=== PATIENT | male | born 1935 | race Caucasian/White ===

== ENCOUNTER 2018-12-20 11:31 | Emergency (ER) | payer MEDICARE ==
[~2018-12-20] VITALS: Ht 180.3 cm; Wt 68.0 kg
[~2018-12-20 11:31] MED LIST: AMOXICILLIN500 MG ORAL; OFLOXACIN10 ML RIGHT EAR
[2018-12-20] MEDS ORDERED: CASODEX50 MG ORAL (11:35)
[2018-12-20] MEDS ORDERED: MILK OF MA400 MG/51 ORAL (11:35)
[2018-12-20] MEDS ORDERED: DOCUSATE SODIU100 MG ORAL (11:35)
[2018-12-20] MEDS ORDERED: TYLENOL325 M1 PO (11:35)
[2018-12-20] MEDS ORDERED: ASPIRIN EC81 MG ORAL (11:35)
--- NOTE | 2018-12-20 11:35 | NUR ---
ED Nurse Note: BROUGHT IN BY [facility] DUE TO LAC TO UPPER LEFT EYEBROW. NOT ACTIVELY BLEEDING AT THIS TIME. PT HAS CUTS ON LEFT ARM THAT AR BANDAGE. PT IS COMING FROM [facility]. PT DENIES PAIN AT THIS TIME. PER EMT, PT HISTORY OF [place]IZOPHREN[place]. PER EMT RISK FOR AWOL. SITTER IS PRESENT AT BEDSIDE VITAL SIGNS ARE STABLE THE MOMENT. PT ON ROOM AIR 99%, 110/92 BP, HR IS 79. NO FEVER 97.5 F
--- NOTE | 2018-12-20 11:36 | NUR ---
ED Nurse Note: per emt, he was tying his shoes at [employer] and hit his head on a cabinet. when asked pt he said "what do you want! I play soccer all the time and fall all the time it doesnt hurt, its not a big deal".
[2018-12-20 11:54] VITALS: BP 110/92
--- NOTE | 2018-12-20 12:23 | Emergency Room Report ---
History of Present Illness General Chief Complaint: Laceration Source: Patient, EMS Present Illness HPI Patient presents with trauma to the left facial region history Patient himself is a very poor historian Somewhat noncompliant and combative as well It was reported by paramedics that at the nursing facility patient has sustained a fall injury to the left eyebrow Unknown report of lapse of consciousness patient denies any complaints at this time as far as weakness or chest pain Allergies: Coded Allergies: No Known Allergies (Unverified , 10/22/15) Patient History Limited by: medical condition Past Medical History: see triage record Pertinent Family History: unable to obtain Reviewed Nursing Documentation: PMH: Agreed; PSxH: Agreed Nursing Documentation-PMH Past Medical History: No History, Except For History Of Psychiatric Problem: Yes - DEMENTIA, SCHIZO Review of Systems All Other Systems: limited - Other than the ones mentioned in the history of present illness all others are reviewed however they do stay limited due to the patient's mental status Physical Exam Vital Signs Date Time Temp Pulse Resp B/P (MAP) Pulse Ox O2 Delivery O2 Flow Rate FiO2 12/20/18 11:25 97.5 107 16 135/77 93 Room Air Sp02 EP Interpretation: reviewed, normal General Appearance: no apparent distress Head: other - Steri-Strips in place left lateral eyebrow no active bleeding Eyes: bilateral eye PERRL ENT: normal pharynx Neck: supple Respiratory: lungs clear, no retraction, no accessory muscle use Cardiovascular #1: regular rate, rhythm Gastrointestinal: non tender, soft Musculoskeletal: normal inspection Neurologic: alert, responsive Skin: other - Mild ecchymosis left lateral eyebrow, on attempt of removal of the Steri-Strips for further evaluation patient grabs my hand and Stast[place] for further examination Lymphatic: no adenopathy Medical Decision Making Diagnostic Impression: Primary Impression: Laceration Additional Impression: Head injury ER Course Multiple differentials considered Including but not limited to neurological neurosurgical pathology patient has CT head obtained no obvious acute pathology is seen Unfortunately patient is not allowing us to visualize the area under the Steri- Strips However appears to be appropriately covered and not expanding And patient is Deferred for further outpatient correction care CT/MRI/US Diagnostic Results CT/MRI/US Diagnostic Results : Impression CT head no acute disease Last Vital Signs Date Time Temp Pulse Resp B/P (MAP) Pulse Ox O2 Delivery O2 Flow Rate FiO2 12/20/18 11:54 97.5 79 16 110/92 99 Room Air Status: improved Disposition: XFER SNF Condition: Improved Referrals: Ayad Dupree MD (PCP) Additional Instructions: Patient is provided with the discharge instructions notified to follow up with primary doctor in the next 2-3 days otherwise return to the er with any worsening symptoms. Please note that this report is being documented using DRAGON technology. This can lead to erroneous entry secondary to incorrect interpretation by the dictating instrument. Anuradha Mendoza DO Dec 20, 2018 12:23
--- NOTE | 2018-12-20 12:23 | NUR ---
ED Nurse Note: Pt down to CT for imaging.
--- NOTE | 2018-12-20 13:15 | Diagnostic Imaging Report ---
Indication: Head trauma, status post fall, laceration above left eyebrow Technique: spiral acquisitions obtained through the brain. Angled axial and coronal 5 x 5 mm slices were reconstructed. No IV contrast utilized. Radiation dose was minimized using automated exposure control Total dose length product 1425.35 mGycm. CTDIvol(s) 70.38 mGy Comparison: none FINDINGS: No acute hemorrhage or edema. No mass effect or midline shift. There is age-related enlargement of the ventricles and extra axial CSF spaces. There is periventricular deep white matter ischemic change. Normal preston-white differentiation. Visualized orbits are unremarkable. Visualized sinuses are unremarkable. Intact calvarium. There is minimal left supraorbital soft tissue swelling demonstrated. The mastoids are clear. IMPRESSION: Chronic and age-related changes. Negative for acute intracranial bleed or mass effect Minimal left supraorbital scalp soft tissue contusion The CT scanner at [facility] is accredited by the [employer] and the scans are performed using protocols designed to limit radiation exposure to as low as reasonably achievable to attain images of sufficient resolution adequate for diagnostic evaluation
[2018-12-20 13:46] VITALS: BP 124/76
--- NOTE | 2018-12-20 14:08 | NUR ---
ED Nurse Note: Report given to Ximena at [facility].
[2018-12-20 14:40] VITALS: BP 130/81
--- NOTE | 2018-12-20 14:40 | NUR ---
ED Nurse Note: BLS unit ambulance personels at bedside for transportation.
== END 2018-12-20 14:44 ==
LOC: EDBD 11:31 → EMR 12:41
DX: S01.112A Laceration without foreign body of left eyelid and periocular area, initial encounter (principal); W19.XXXA Unspecified fall, initial encounter; Y92.129 Unspecified place in nursing home as the place of occurrence of the external cause
CPT/HCPCS: 70450; 99284